=== PATIENT | male | born 1990 | race Two or more races ===

== ENCOUNTER 2019-10-14 06:39 | Emergency (ER) | payer OTHER ==
[~2019-10-14] VITALS: Ht 185.4 cm; Wt 109.5 kg
[2019-10-14] MEDS ORDERED: KETOROLAC 30 MG/1 ML IVPush ONE (07:00)
[2019-10-14] MEDS ORDERED: MORPHINE SULFATE 4 MG/ML, 1ML IVPush PRN (07:00)
[2019-10-14] MEDS ORDERED: ONDANSETRON 2MG/ML, 2ML IVPush ONE (07:00)
[2019-10-14] MEDS ORDERED: KETOROLAC 30 MG/1 ML ONE (07:02)
[2019-10-14] MEDS ORDERED: ONDANSETRON 2MG/ML, 2ML ONE (07:02)
--- NOTE | 2019-10-14 07:12 | NUR ---
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 PT DENIES N/V. PT RESTING ON GURNEY W/ CALL LIGHT IN REACH AND SIDE RAILS UPX2. PIV STARTED, LABS DRAWN, PT MEDICATED PER EMAR. PT TO CT.
[2019-10-14 07:18] LABS: BASOPHILS # (AUTO) 0.02 x10^3/uL (0-0.1); BASOPHILS % (AUTO) 0 % (0-1); EOSINOPHILS # (AUTO) 0.02 x10^3/uL (0-0.4); EOSINOPHILS % (AUTO) 0 % (1-7); LYMPHOCYTES # (AUTO) 2.31 x10^3/uL (1-3.4); LYMPHOCYTES % (AUTO) 39 % (22-44); MD NO; MEAN CORPUSCULAR HEMOGLOBIN 29.9 pg (27.5-34.5); MEAN CORPUSCULAR HGB CONC 33.2 g/dL (33.2-36.2); MEAN CORPUSCULAR VOLUME 90.2 fL (81-97); MEAN PLATELET VOLUME 7.3 fL (7.4-10.4); MONOCYTES % (AUTO) 12 % (2-9); NEUTROPHILS # (AUTO) 2.81 x10^3/uL (1.8-6.8); NEUTROPHILS % (AUTO) 48 % (42-75); PLATELET COUNT 295 x10^3/uL (130-400); RED BLOOD COUNT 5.32 x10^6/uL (4.38-5.82); RED CELL DISTRIBUTION WIDTH 12.3 % (9.4-14.8)
--- NOTE | 2019-10-14 07:25 | NUR ---
PT PROVIDED URINAL AND EDUCATED ON NEED FOR URINE SAMPLE.
[2019-10-14 07:30] LABS: ALBUMIN 3.7 g/dL (3.4-5.0); ANION GAP 6 mmol/L (5-15); CALCIUM 7.9 mg/dL (8.5-10.1); CHLORIDE 111 mmol/L (98-107); CREATININE 1.03 mg/dL (0.7-1.3)
--- NOTE | 2019-10-14 07:32 | NUR ---
PT REPORTS RELIEF OF PAIN W/ MEDS.
--- NOTE | 2019-10-14 07:40 | NUR ---
DR.VAN MERA AND [facility] AT BEDSIDE FOR RECHECK
--- NOTE | 2019-10-14 07:45 | NUR ---
PT AMBULATED TO THE BR W/ A STEADY GAIT, PROVIDED URINE CUP FOR SAMPLE.
--- NOTE | 2019-10-14 07:57 | NUR ---
URINE COLLECTED AND SENT TO LAB.
[2019-10-14 08:06] LABS: MICROSCOPIC INDICATED
[2019-10-14 08:22] VITALS: BP 112/70
--- NOTE | 2019-10-14 08:42 | NUR ---
Patient given discharge instructions and they have confirmed that they understand the instructions. Patient ambulatory with steady gait.
== END 2019-10-14 08:43 | disposition home or self-care (01) ==
LOC: ED 07:58
DX: N20.1 Calculus of ureter (principal); R11.2 Nausea with vomiting, unspecified; R10.9 Unspecified abdominal pain
CPT/HCPCS: 36415; 74176; 80048; 81001; 82040; 85025; 87086; 96374; 96375; 99284; J1885; J2405